=== PATIENT | male | born 1965 | race Caucasian/White ===

== ENCOUNTER 2017-09-05 23:19 | Inpatient (IN) | payer SELFPAY ==
[~2017-09-05] VITALS: Ht 177.8 cm; Wt 54.1 kg
--- NOTE | ~2017-09-05 | PR ---
[place], [place] PROGRESS NOTE NAME: JOSE L COX UNIT #: [id number] ROOM: [facility] DOCTOR: SAHISH ARREDONDO MD,UMESH BIRTHDATE: [birth year] DOS: 09/08/2017 SUBJECTIVE: The patient remains in the Intensive Care Unit at this time. He had a urine drug screen repeated again that was noted negative. The patient reported reduction of the symptoms of shortness breath. Cough was still noted intermittently, nonproductive. Denies symptoms of hemoptysis. Denies chest pain. Denies any symptoms of headache. Denies symptoms of diplopia or any visual changes. The patient reported no symptoms of nausea, vomiting, diarrhea, abdominal pain, hematemesis, or melena. Denies any edema or pain of the lower extremities. Remaining systems of the patient were reviewed and they were noted all negative. OBJECTIVE: VITAL SIGNS: For the patient, which has been recorded showed the temperature noted as normal, respiratory rate 20, heart rate 79, blood pressure 140/71 to 112/64. The pulse oxygen saturation 98% saturation noted on room air. HEENT: Examination shows head was atraumatic. Eyes nonicterus. NECK: Supple. CARDIOVASCULAR: S1, S2 is audible. LUNGS: The patient was noted with moderate decreased breath sounds without any crackles, rhonchi, or wheezing. ABDOMEN: Soft, nontender. EXTREMITIES: Without any acute edema. LABORATORY DATA: Blood culture from the 09/06/2017, preliminary showed no bacterial growth. Final culture results were pending. IMPRESSION: 1. Mass-like consolidation. Rule out malignancy as well in the right upper lung with weight loss. Acute aspiration pneumonia with gram-positive, gram-negative and anaerobic combination with the patient be considered. 2. History of chronic nicotine dependence and chronic obstructive pulmonary disease. PLAN OF THERAPY: Continuation of the current plan of the patient with the antibiotics as previously ordered, bronchodilators, monitoring the lab as ordered legionella and strep pneumo. Continue nicotine placement patches. Continuation of bronchodilators. The patient has been assessed for therapy, bronchoscopy done tomorrow morning. Rule out any endobronchial lesion including assessment of possible malignancy. Otherwise, the biopsies will be deferred for the patient until later with monitoring the patient as an outpatient for the current abnormality. Supportive therapy, plan of management, and care plan. Usual treatment. All other supportive treatment and therapies. [place], [place] PROGRESS NOTE NAME: JOSE L COX UNIT #: [id number] ROOM: [facility] DOCTOR: ASHISH ARREDONDO MD,UMESH BIRTHDATE: [birth year] UMESH HINOJOSA MD CM:WINTER [id number] UMESH ARREDONDO MD 09/08/17 1339 interface
--- NOTE | ~2017-09-05 | PROC NOTE ---
[place], [place] PROCEDURE NOTE NAME: JOSE L COX UNIT #: [id number] ROOM: [facility] DOCTOR: ASHISH ARREDONDO MD,UMESH BIRTHDATE: [birth year] DOS: 09/09/2017 PROCEDURE: Bronchoscopy. PREOPERATIVE DIAGNOSIS: Right upper lung consolidation mass-like lesion. The patient for endobronchial obstruction. POSTOPERATIVE DIAGNOSES: Right upper lung consolidation mass-like lesion the patient for endobronchial obstruction. There was no discrete endobronchial obstruction noted. PROCEDURE DESCRIPTION: Informed consent obtained for the patient. The patient brought to the OR and placed in supine position. Conscious sedation administered by the Anesthesia Department. After achieving proper sedation, airway introduced into the mouth. Bronchoscope was introduced into the airway into laryngeal area. Epiglottis vocal cords were seen. Bronchoscope advanced to vocal cord and tracheal lumen. Tracheal lumen for the patient was identified. The patient noted a small amount of bilious secretion suctioned out to the deepali level. Right upper, right middle, right lower, left upper, lingular lower bronchi were all examined. Small amount of bloody secretion from the patient was noted in the right upper lung bronchus subsegment. The secretion was cleared out with normal saline wash for this patient in addition washing done in the right upper lung. Procedure well tolerated by the patient without complication. Postoperative findings were discussed with the patient's mother in detail in the recovery room. No immediate change in treatment will be done. The patient will have a chest x-ray repeated in a couple of days. The patient also cultured to be monitored for the patient prior to consideration for home discharge plan. UMESH HINOJOSA MD CM:PROCNOTE:PROCEDURE NOTE [id number] UMESH ARREDONDO MD
--- NOTE | ~2017-09-05 | CON ---
[place], [place] REPORT OF CONSULTATION NAME: JOSE L COX UNIT #: [id number] ROOM: [facility] DOCTOR: UMESH CROCKETT MD BIRTHDATE: [birth year] DOS: 09/07/2017 PULMONARY CONSULTATION AND EVALUATION CONSULTATION REQUESTED BY: Hospitalist services. REASON FOR CONSULTATION: To assess for current abnormal area of consolidation, mass-like lesion, the patient in the right upper lobe. HISTORY OF PRESENT ILLNESS: A 52-year-old male patient, who has been noted with acute respiratory symptoms ongoing for about 3-4 weeks. He has been admitted to the hospital essentially for psychiatric reasons with history of major depression and suicidal ideation. The patient stating symptoms of shortness of breath, has been present for the patient associated cough, which has been noted with intermittent sputum expectoration for the last 3 weeks or greater. The symptoms have been noted essentially unchanged. The patient does report some symptoms of wheezing at times as well. He denies any symptoms of chest pain. The patient denies symptoms of hemoptysis. REVIEW OF SYSTEMS: CONSTITUTIONAL: Fatigue and tiredness reported. The patient denies symptoms of fever or chills, but noted weight loss in the patient, about 20 pounds or so for the patient in the past one month. EYES: Denies any burning, tenderness, redness or discharge. EAR, NOSE, AND THROAT: Denies any sore throat, hoarseness, otalgia, postnasal drainage, or epistaxis. CARDIOVASCULAR: Denies anginal pain, edema or pain in the lower extremities. GASTROINTESTINAL: Symptoms of nausea, vomiting, diarrhea, and abdominal pain. Denies symptoms of dysphagia. SKIN: Denies any abnormal lesions or rashes. GENITOURINARY: No dysuria, suprapubic pain, and hematuria. MUSCULOSKELETAL: Denies any joint pain, redness, or tender. No deformities. CENTRAL NERVOUS SYSTEM: Denies dizziness, headache, diplopia, syncopal episodes or seizures. Remaining systems were reviewed with the patient, they were noted all negative. PAST MEDICAL HISTORY: 1. The patient was reported as essential hypertension. 2. Chronic nicotine dependence. 3. History of Garcia's palsy. SOCIAL HISTORY: The patient stated he lives at home. He is not at the present time. The patient does have a history of drinking beer about 2 to 3 packs a day. The tobacco use was noted for the patient from the age of [age] years old. Continue active tobacco. The patient [id number]-half pack of cigarettes per day, stating he is not able to smoke much cigarette for the past few days. PAST SURGICAL HISTORY: 1. Essentially noted as tonsillectomy. [place], [place] REPORT OF CONSULTATION NAME: JOSE L COX UNIT #: [id number] ROOM: [facility] DOCTOR: UMESH CROCKETT MD BIRTHDATE: [birth year] 2. Partial resection of the small bowel. FAMILY HISTORY: The patient's father at age of 5656 years old, complication related to the COPD. Mother living, 83 years old with history of essential hypertension. HOME MEDICATIONS: Not reported. DRUG ALLERGY: None reported by the patient. PHYSICAL EXAMINATION: GENERAL: A 52-year-old white male, currently noted comfortable at this time, sitting on the bed. The patient without any acute distress. Height of 5 feet 10 inches, weight of 119 pounds. BMI is 17. VITAL SIGNS: For the patient shows normal temperature, respiratory rate of 12-20, heart rate 77. The blood pressure 88/49-114/63. The pulse oxygen saturation of the patient was recorded on room air as 99% saturation. HEENT: Head was atraumatic. Eyes, nonicterus. NECK: Supple. CARDIOVASCULAR: S1, S2 was audible. LUNGS: The patient was noted without any crackles, rhonchi, or wheezing. ABDOMEN: Soft, nontender. EXTREMITIES: Without any acute edema. LABORATORY DATA: CBC of the patient on 09/05/2017, WBC count 18.5, hemoglobin and hematocrit normal, platelet count elevated at 37,000. Urinalysis noted negative on admission. Urine drug screen on admission was noted negative for any illicit drugs. The CMP for the patient on 09/05/2017 for this patient was noted with BUN and creatinine was normal. Glucose was normal. Sodium 130, chloride of 94. The salicylate level noted as less than 2. Troponin was normal on the 9th. Lactic acid 2.0 on 09/06/2017. Additional 2 sets of troponin of the patient on 09/06/2017 were normal. CBC of the patient on 09/07/2017, WBC count normal, hemoglobin 12.9, hematocrit 38.7, platelet count 138,000. CMP for the patient that was done for this patient shows BUN normal, creatinine was normal. The chest x-ray of the patient that was done for the patient on admission for the patient was also reviewed for this patient that shows evidence of infiltration noted in the right upper lung, the patient's pleural based mass-like lesion. CT scan of chest was done for the patient on 09/06/2017 for the patient was reviewed. This patient shows 5.6 x 6 cm pleural based consolidation and/or mass-like lesion. The patient noted in the right upper lobe. Evidence of paraseptal emphysema was also noted. Some cystic area for the patient noted in the center for the patient versus the emphysema which is noted with current area of consolidation or mass. There was no evidence of significant lymphadenopathy was noted; however, the mediastinal structures assessment would be considered suboptimal because of lack of the intravenous contrast. Low attenuation intracortical focus in the left upper kidney 1.1 cm was also reported as well. IMPRESSION: 1. The patient currently admitted to the hospital noted with volume loss. The [place], [place] REPORT OF CONSULTATION NAME: JOSE L COX UNIT #: [id number] ROOM: [facility] DOCTOR[facility] [birth year] patient's current finding, the patient may be presenting the atypical area of consolidation. The patient with aspiration pneumonia and the differential would be considered with either central cavitation or the cyst for this patient for emphysema changes surrounded by the area of consolidation, pleural base. 2. History of chronic heavy nicotine abuse, rule out malignancy as well. 3. Pneumonia. The patient in the differential would be also considered, Legionella pneumonia. The patient was Staph aureus for gram-negative infections. PLAN OF MANAGEMENT: At this time, the patient would be given the intravenous Zithromax. The patient on Zosyn as the primary antibiotic. The patient should suffice for the current treatment. Bronchodilator will be continued. Monitor respiratory status closely. Continue manage the patient's symptoms and management of the major depression for this patient as already noted in progress. Supportive therapy plan and management. Nicotine replacement patch to overcome the nicotine withdrawal. The sputum for Gram stain and culture. Urine for Legionella antigen and strep antigen will be ordered as well. Additional treatment changes will be recommended based on the further assessment of progression of the illness. Assessment and management was discussed with Dr. Gissell Pizano, who is the primary care attending for the patient today. UMESH HINOJOSA MD CM:CONSTR:REPORT OF CONSULTATION 1347 09/07/17 1626 interface
--- NOTE | ~2017-09-05 | PR ---
[place], [place] PROGRESS NOTE NAME: JOSE L COX UNIT #: [id number] ROOM: [facility] DOCTOR: ASHISH ARREDONDO MD,UMESH BIRTHDATE: [birth year] DOS: 09/09/2017 SUBJECTIVE: The patient remains on the antibiotic. The patient noted the cough. Denies chest pain, denies symptoms of shortness of breath. Denies symptoms of hemoptysis. He had not been noted any other abnormal symptoms in the last 24 hours. The patient's depression seem to be better. Remaining review of system was completed, noted all negative. He is n.p.o. past midnight. Bronchoscopy to be done today. OBJECTIVE: VITAL SIGNS: The patient showed normal temperature, respiratory 15-20, heart rate 69-71, blood pressure 160/51-132/77. Pulse oxygen saturation on room air was 96% saturation. HEENT: Head was atraumatic. Eyes nonicterus. NECK: Supple. CARDIOVASCULAR: S1, S2 audible. LUNGS: Llmh-mk-qjxarhul decreased breath sounds bilaterally. ABDOMEN: Soft, nontender. EXTREMITIES: Without any acute edema with no skin lesions or rashes. MUSCULOSKELETAL: Without any acute deformities. CENTRAL NERVOUS SYSSTEM: For patient noted cranial nerves 2-12 intact. No focal deficit. LABORATORY DATA: The patient's CBC today: WBC count 11.8, hemoglobin 35, platelet count, WBC count normal. BMP this morning, normal BUN and creatinine. Glucose was normal. The patient underwent a cardiac stress test yesterday, completed on 09/08/2017 was described as a normal pericardial perfusion images. Impaired left ventricular ejection fraction noted at 40% of the left ventricle, ejection fraction. IMPRESSION: 1. The patient who has been noted with the cardiomyopathy. 2. Acute pneumonia for patient suspected strongly, rule out any endobronchial obstruction or malignancy right upper lobe as well. 3. Chronic obstructive pulmonary disease. 4. The patient with depression with suicidal ideation as well. 5. Chronic nicotine dependence. PLAN OF TREATMENT: Continue current antibiotics, bronchodilators and oxygen supplementation. The changes in the medical management will be done if necessary after bronchoscopy. In the meantime, continue other supportive plan of management and therapy plan of care. No additional change in treatment is advised will be necessary at the present time. [place], [place] PROGRESS NOTE NAME: JOSE L COX UNIT #: [id number] ROOM: [facility] DOCTOR: UMESH CROCKETT MD BIRTHDATE: [birth year] UMESH HINOJOSA MD CM:WINTER [id number] UMESH ARREDONDO MD 09/09/17 1731 interface
--- NOTE | ~2017-09-05 | CON ---
[place], [place] REPORT OF CONSULTATION NAME: JOSE L COX UNIT #: [id number] ROOM: [facility] DOCTOR: JOSE L TURK MD BIRTHDATE: [birth year] DOS: 09/06/2017 REASON FOR CONSULTATION: Newly documented left bundle branch block. HISTORY OF PRESENT ILLNESS: The patient is a 52-year-old man who has no previous history of heart disease. He came in to the hospital complaining of a cough productive of purulent sputum. In addition, he was having suicidal ideations. In the emergency room, he was noted to have a left bundle branch block. Reportedly, an electrocardiogram from 2011 did not show this pattern and therefore, cardiology consultation was requested. The patient states that he typically does not have chest pain, but for the last 3 weeks, he has been having a productive cough and did develop right-sided chest pain, which is worse with coughing. He denies any fevers, chills or sweats. He denies lightheadedness or syncope. He denies nausea or vomiting. He has been anorectic and states that he has not been eating well lately. He has been losing weight. PAST MEDICAL HISTORY: Includes: 1. Hypertension. The patient was treated for hypertension for a while about 10 years ago. When he moved for his job, he did not get another physician and stopped taking the medications. 2. History of Garcia palsy around 2009. 3. History of small bowel resection when he was an infant, reason not known. 4. Status post tonsillectomy. 5. History of tobacco and alcohol abuse. The patient does drink several beers every day. MEDICATIONS PRIOR TO ADMISSION: None. ALLERGIES: The patient has no known drug allergies. FAMILY HISTORY: The patient's father at age 56 from emphysema. His mother is alive at age 83 and has a history of hypertension. There is no family history of early coronary disease. REVIEW OF SYSTEMS: The patient denies diplopia or loss of vision. He is generally weak, but denies focal weakness. He denies syncope or lightheadedness. He has been anorectic lately. He denies nausea or vomiting. He denies hemoptysis or hematemesis, although he does have a cough productive of purulent sputum. He does have chest pain with cough and deep breath on the right side of his chest radiating from his front to his back. He denies diarrhea or constipation. He denies blood in his urine or stools. He denies peripheral edema. He denies any leg cramping. Remainder review of systems is negative except as noted above. He denies polydipsia or polyuria. Remainder of the review of systems is negative except as noted above. SOCIAL HISTORY: The patient is single, although he does have a fiancee. He [place], [place] REPORT OF CONSULTATION NAME: JOSE L COX UNIT #: [id number] ROOM: [facility] DOCTOR: JOSE L TURK MD BIRTHDATE: [birth year] smokes daily and drinks 3-4 beers every day. He used to drink more heavily in the past. PHYSICAL EXAMINATION: GENERAL: The patient is a slender white male who is awake, alert and oriented. VITAL SIGNS: Pulse is 84 and regular, blood pressure is 130/70. He is afebrile. He weighs 54.1 kg and has a body mass index of 17.1. HEENT: Normocephalic and atraumatic. Extraocular muscles are intact. Sclerae are clear. Pupils equal, round and react to light. The oral mucosa is moist. Tongue is midline. NECK: Supple. He has no jugular distention. Carotids are full. He has no bruits. He has no neck or supraclavicular masses, no thyromegaly. LUNGS: Respirations are unlabored. His chest is clear to auscultation and percussion. He has no presacral edema or chest wall tenderness. CARDIOVASCULAR: His heart has a regular rhythm. Heart tones are distant. I heard a fourth heart sound, but no third heart sound or murmur. The PMI is not displaced. He has no precordial heave, lift or thrill. ABDOMEN: Soft and normally active without masses, organomegaly or bruits. EXTREMITIES: Showed no edema. Peripheral pulses are palpable in the feet. LABORATORY DATA: I reviewed his electrocardiograms and they do indeed show a left bundle branch block. Serial troponin levels have been normal. White count is elevated at 18,500 with a normal hemoglobin at 15.4, platelet count is 537,000. Sodium is 130, potassium 4.2, BUN 70, creatinine 0.71. Lactate level was 2.0 on admission. Chest x-ray does show a right upper lobe pneumonia. IMPRESSIONS: 1. Hospitalization for suicidal ideation. 2. Severe depression. 3. Left bundle branch block. Reportedly, this is new compared to an electrocardiogram from 2011. 4. History of untreated hypertension. 5. History of alcohol abuse. PLAN: The etiology of the patient's left bundle branch block is unknown; however, if it is a recently acquired finding, it does increase his risk for cardiac events in the next year. He was told that alcohol could be contributing to this and advised to stop drinking as well as stop smoking. In order to evaluate his status further, we will be getting an echocardiogram when it is available. We will also do a pharmacologic stress test. Further recommendations will depend upon the results of these examinations. I thank the hospitalist physicians for asking our advice regarding the patient's care. [place], [place] REPORT OF CONSULTATION NAME: JOSE L COX UNIT #: [id number] ROOM: [facility] DOCTOR: JOSE L TURK MD BIRTHDATE: [birth year] JOSE L TURK MD CM:CONSTR:REPORT OF CONSULTATION 1337 09/08/17 1534 interface
--- NOTE | ~2017-09-05 | PR ---
[place], [place] PROGRESS NOTE NAME: JOSE L COX UNIT #: [id number] ROOM: [id number] DOCTOR: ASHISH ARREDONDO MD,UMESH BIRTHDATE: [birth year] DOS: 09/11/2017 SUBJECTIVE: The patient was noted comfortable at this time without any acute distress. Resting comfortably on the chair. Denies symptoms of chest pain, coughing, sputum expectoration. OBJECTIVE: VITAL SIGNS: Normal temperature, respiratory rate 20, heart rate 59, blood pressure 112/67, pulse ox and saturation on room air 98% saturation. HEENT: Examination shows no acute change. NECK: Supple. CARDIOVASCULAR: S1, S2 is audible. LUNGS: Noted without any wheeze or crackles. ABDOMEN: Soft, nontender. LABORATORY DATA: The chest x-ray of the patient that was done this morning, the patient showed reduction of previous noted area of consolidation, infiltration or mass-like lesion in the right upper lobe. IMPRESSION: The patient has been noted with continued progressive improvement and resolution of the current, acute pneumonia, rule out malignancy as well until complete resolution occurs. The patient with the depression, which has been noted better. PLAN OF THERAPY: The patient could be discharged home today with outpatient followup. The patient in the next couple of weeks, was recommended. Certainly, the abnormality in the right upper lung needs to be excluded completely with followup chest x-ray and CT scans. Abstinence tobacco use recommended. UMESH HINOJOSA MD CM:PNTRANS [phone] UMESH ARREDONDO MD 09/11/17 195 interface
--- NOTE | ~2017-09-05 | PR ---
[place], [place] PROGRESS NOTE NAME: JOSE L COX UNIT #: [id number] ROOM: [facility] DOCTOR: JOSE L TURK MD BIRTHDATE: [birth year] DOS: 09/07/2017 SUBJECTIVE: The patient was seen today 09/07/2017 at his bedside in the intensive care unit. The patient is a 52-year-old man whom I first saw yesterday for evaluation of an abnormal electrocardiogram. He was brought to the hospital with suicidal ideations, was found to have pneumonia and a possible lung mass. His electrocardiogram shows a left bundle branch block, which apparently was not present in 2012. He does have a history of hypertension and does have a family history of multiple family members having heart disease, but not early coronary disease. Since admission, he has been treated for his pneumonia and is breathing more easily. He no longer has chest discomfort. He denies fevers or chills. He has a cough, but it is nonproductive. PHYSICAL EXAMINATION: VITAL SIGNS: Today, his pulse is 77 and regular, blood pressure is 114/63. He is afebrile. NECK: Supple. He has no jugular distention. Carotids are full. There are no bruits. He has no neck or supraclavicular masses and no thyromegaly. LUNGS: Respirations are unlabored. He has decreased breath sounds in the right lung. A Few crackles are heard. ABDOMEN: Benign. EXTREMITIES: Showed no edema. IMPRESSION: 1. Hospitalization for suicidal ideation. 2. Newly documented left bundle branch block. Reportedly, this was not present on an electrocardiogram from 2011. 3. Right upper lobe pneumonia with possible lung mass. 4. History of hypertension. 5. History of ongoing alcohol abuse. PLAN: We will evaluate the patient further with an echocardiogram and pharmacologic myocardial perfusion study. Further comments regarding the patient's cardiac status and prognosis will depend upon the results of those examinations. We thank the hospitalist service for asking our advice regarding his care. [place], [place] PROGRESS NOTE NAME: JOSE L COX UNIT #: [id number] ROOM: [facility] DOCTOR: JOSE L TURK MD BIRTHDATE: [birth year] JOSE L TURK MD CM:PNKAREN [phone] JOSE L TURK MD 09/07/17 1250 interface
--- NOTE | ~2017-09-05 | PR ---
[place], [place] PROGRESS NOTE NAME: JOSE L COX UNIT #: [id number] ROOM: [facility] DOCTOR: JOSE L TURK MD BIRTHDATE: [birth year] DOS: 09/08/2017 SUBJECTIVE: The patient was seen in the Cardiology Department today, 09/08/2017 just prior to a pharmacologic stress test. He is a 52-year-old man who presented recently to the hospital and was found to have a newly documented left bundle branch block. The patient states he is feeling better. He did, however, have an echocardiogram this morning, which shows that his left ventricle is impaired with an ejection fraction between 20 and 25% and stage II diastolic dysfunction. He does show akinesis of the anterior septal richards with global hypokinesis elsewhere. The examination is most consistent with an ischemic cardiomyopathy, although toxic myopathy from alcohol abuse is also a possibility. PHYSICAL EXAMINATION: VITAL SIGNS: Today, his pulse is 79 and regular, blood pressure is 104/71. He is afebrile. He weighs 54.1 kg and has a body mass index of 17.1. HEENT: Normocephalic and atraumatic. Extraocular muscles are intact. Sclerae are clear. His oral mucosa is moist. Tongue is midline. NECK: Supple. He has no jugular distention. Carotids are full. LUNGS: Respirations are unlabored. Chest is clear. HEART: Has a regular rhythm with an S4 gallop. I did not hear an S3. ABDOMEN: Benign. EXTREMITIES: Showed no edema. LABORATORY DATA: Hemoglobin is 12.9, white count 9700, platelet count 438,000. Sodium 138, potassium 4.2, BUN 13, creatinine 0.84. IMPRESSION: 1. Newly documented left bundle branch block. 2. Abnormal echocardiogram demonstrating regional and global left ventricular dysfunction with an ejection fraction between 20 and 25% and stage II diastolic relaxation abnormalities. 3. Right upper lobe pneumonia with possible lung mass. 4. History of hypertension. 5. History of alcohol abuse. PLAN: We will perform a pharmacologic stress test in order to determine the cause for his left ventricular dysfunction. Further recommendations depend upon the results of the stress test. I thank the hospitalist physicians for asking our advice regarding his care. [place], [place] PROGRESS NOTE NAME: JOSE L COX UNIT #: [id number] ROOM: [facility] DOCTOR: JOSE L TURK MD BIRTHDATE: [birth year] JOSE L TURK MD CM:PNTRANS [id number] JOSE L TURK MD 09/08/17 1054 interface
--- NOTE | ~2017-09-05 | PR ---
[place], [place] PROGRESS NOTE NAME: JOSE L COX UNIT #: [id number] ROOM: [id number] DOCTOR: ASHISH ARREDONDO MD,UMESH BIRTHDATE: [birth year] DOS: 09/10/2017 SUBJECTIVE: The patient was noted comfortable at this time, resting on the bed. The patient has a bronchoscopy done yesterday for large area of consolidation to rule out endobronchial obstruction. He denies symptoms of chest pain. Denies abdominal pain. OBJECTIVE: VITAL SIGNS: The patient showed normal temperature, respiratory rate 18, heart rate 72, and blood pressure 118/69. Pulse oxygen saturation on room air 98% saturation. HEENT: Examination shows head was atraumatic. Eyes nonicterus. NECK: Supple. CARDIOVASCULAR: S1, S2 audible. LUNGS: Without any wheeze or crackles. ABDOMEN: Soft, nontender. LABORATORY DATA: The patient's CBC today, normal WBC count, hemoglobin 12.4. The culture of the bronchial washing preliminary noted as normal caitlin. The Gram stain many white blood cells, rare epithelial cells, rare gram-positive cocci in pairs. IMPRESSION: The patient is being currently noted with stable respiratory status at present time with large area of consolidation, mass-like lesion in the left upper lobe. PLAN OF MANAGEMENT: No changes in the plan of therapy for the patient at this time. Continue the patient's current plan of care. Usual treatment, all other supportive management and therapies. UMESH HINOJOSA MD CM:PNTRANS [id number] UMESH ARREDONDO MD 09/10/17 1620 interface
--- NOTE | ~2017-09-05 | CON ---
[place], [place] REPORT OF CONSULTATION NAME: JOSE L COX UNIT #: [id number] ROOM: [facility] DOCTOR: JACKY MAGAÑA MD BIRTHDATE: [birth year] DOS: 09/06/2017 REASON FOR HOSPITALIZATION: Increased depression and suicidal ideation with a plan. HISTORY OF PRESENT ILLNESS: The patient was seen, chart reviewed, and I spoke with nursing staff. The patient is a 52-year-old male who was brought in to the ER because of increased depression and suicidal ideation with a plan to kill himself in the cold and freeze. Reportedly, the patient told the ER that he has nothing to live for anymore. The patient was pleasant and cooperative during the interview. He reports being depressed, down, sad, hopeless and helpless for the last 8 months since he lost his job. He said that he lost everything and that there is nothing to look forward to. He said that he has been lying to his family and he feels guilty and bad about himself now also. He denied any symptoms of psychosis, sumit, or hypomania. PAST MEDICAL HISTORY: Nothing reported. PAST PSYCHIATRIC HISTORY: The patient denied any prior psychiatric hospitalization. No prior suicide attempt. No suicide in the family. Denied having any gun at home. SUBSTANCE ABUSE HISTORY: The patient mentions that he drinks alcohol. He said that he drinks at least 6 beers and sometimes more every day. Denied any other substances. SOCIAL HISTORY: He was born and raised in [place], [place]. High school graduate. He was in the [employer], but got honorable discharge. Never , no kids. He is unemployed. He has been living with his fiancee. MENTAL STATUS EXAMINATION: The patient was pleasant, cooperative. He was alert and oriented to date, month and year. Speech is normal volume and tone. He described his mood as "down." Affect was constricted. Thought process goal directed. No flight of ideas, loosening of association. He denied auditory or visual hallucination. No delusion or paranoia noted. He still had fleeting suicidal ideation, but no intent or plan. Denied any homicidal ideation, intent or plan. Insight and judgment fair. ASSESSMENT: 1. Major depressive disorder, recurrent without psychotic feature, currently depressed with fleeting suicidal ideation. 2. Alcohol dependence. PLAN: 1. Continue current care at the ICU. 2. Continue redirection. 3. The patient needs to be admitted to the psychiatric floor once medically stable. If the patient refuses, he needs to be pink slipped. [place], [place] REPORT OF CONSULTATION NAME: JOSE L COX UNIT #: [id number] ROOM: [facility] DOCTOR: JACKY MAGAÑA MD BIRTHDATE: [birth year] JACKY MAGAÑA MD CM:CONSTR:REPORT OF CONSULTATION 1105 09/06/17 1137 interface
[2017-09-05 23:20] VITALS: BP 174/100
[2017-09-06] VITALS (8 sets, daily range): BP systolic 103–156; BP diastolic 60–98
[2017-09-06 00:02] LABS: BASO # 0.1 10*3/uL (0.0-0.1); BASO % 0.4 % (0.0-1.0); EOS % 0.1 % (1.0-4.0); HEMATOCRIT 45.1 % (42.0-52.0); HEMOGLOBIN 15.4 g/dl (14.0-18.0); LYMPH # 2.6 10*3/uL (1.3-4.4); LYMPH % 13.9 % (27.0-41.0); MEAN CELL VOLUME 91.7 fl (80.0-94.0); MEAN CORPUSCULAR HGB 31.3 pg (27.0-31.0); MEAN CORPUSCULAR HGB CONC 34.1 g/dl (33.0-37.0); MEAN PLATELET VOLUME 8.9 fl (9.6-12.3); MONO # 1.3 10*3/uL (0.1-1.0); MONO % 7.1 % (3.0-9.0); NEUT # 14.4 10*3/uL (2.3-7.9); NEUT % 77.5 % (47.0-73.0); PLATELET COUNT AUTOMATED 537 10*3/uL (130-400); RED BLOOD COUNT 4.92 10*6/uL (4.50-5.90); WHITE BLOOD COUNT 18.5 10*3/uL (4.8-10.8)
[2017-09-06 00:04] LABS: BILIRUBIN NEGATIVE (NEGATIVE); BLOOD NEGATIVE (NEGATIVE); CLARITY SL CLOUDY (CLEAR); COLOR YELLOW (YELLOW); GLUCOSE NEGATIVE (NEGATIVE); KETONE NEGATIVE (NEGATIVE); LEUKO ESTERASE NEGATIVE (NEGATIVE); NITRITE NEGATIVE (NEGATIVE); SPECIFIC GRAVITY <= 1.005 (1.005-1.030); UROBILINOGEN 0.2 E.U./dl (0.2-1.0)
[2017-09-06 00:10] LABS: BACTERIA TRACE; EPITHELIAL CELLS 0-2; WBC 0-2 wbc/hpf (0-5)
[2017-09-06 00:17] LABS: ACETAMINOPHEN (TYLENOL) < 2.0 ug/ml (10-30); ALBUMIN 3.5 gm/dl (3.1-4.5); ALKALINE PHOSPHATASE 104 U/L (45-117); BUN 7 mg/dl (7-24); CHLORIDE 94 mmol/L (98-107); CREATININE 0.71 mg/dL (0.70-1.30); ETHYL ALCOHOL < 3.0 mg/dl (<3); POTASSIUM 4.2 mmol/L (3.5-5.1); SGOT/AST 17 IU/L (3-35); SGPT/ALT 17 U/L (12-78); SODIUM 130 mmol/L (136-145); TOTAL PROTEIN 8.6 gm/dL (6.4-8.2)
[2017-09-06 00:18] LABS: URINE AMPHETAMINES < 1000 (1000ng/ml); URINE BARBITURATES < 200 (200ng/ml); URINE CANNABINOIDS (THC) < 50 (50ng/ml); URINE COCAINE < 300 (300ng/ml); URINE METHADONE < 300 (300ng/ml); URINE OPIATES < 300 (300ng/ml)
[2017-09-06 00:19] LABS: URINE BENZODIAZEPINES < 200 (200ng/ml)
[2017-09-06 00:22] LABS: URINE PHENCYCLIDINE < 25 (25ng/ml)
[2017-09-07] VITALS (7 sets, daily range): BP systolic 88–114; BP diastolic 48–63
[2017-09-07 05:51] LABS: ALBUMIN 2.8 gm/dl (3.1-4.5); ALKALINE PHOSPHATASE 71 U/L (45-117); BUN 13 mg/dl (7-24); CHLORIDE 102 mmol/L (98-107); CHOLESTEROL 144 mg/dL (<200); CREATININE 0.84 mg/dL (0.70-1.30); FREE T4 1.08 ng/dl (0.76-1.46); HDL CHOLESTEROL 64 mg/dl (40-60); LDL CHOLESTEROL 68 mg/dL (9-159); PHOSPHOROUS 4.3 mg/dL (2.5-4.9); POTASSIUM 4.2 mmol/L (3.5-5.1); SGOT/AST 9 IU/L (3-35); SGPT/ALT 14 U/L (12-78); SODIUM 138 mmol/L (136-145); TOTAL PROTEIN 6.5 gm/dL (6.4-8.2); TRIGLYCERIDES 61 mg/dl (<150); VLDL CHOLESTEROL 12 mg/dL (6-40)
[2017-09-07 05:56] LABS: BASO # 0.1 10*3/uL (0.0-0.1); BASO % 0.8 % (0.0-1.0); LYMPH # 3.3 10*3/uL (1.3-4.4); LYMPH % 34.1 % (27.0-41.0); MEAN CELL VOLUME 93.7 fl (80.0-94.0); MEAN CORPUSCULAR HGB 31.2 pg (27.0-31.0); MEAN CORPUSCULAR HGB CONC 33.3 g/dl (33.0-37.0); MEAN PLATELET VOLUME 9.3 fl (9.6-12.3); MONO # 0.9 10*3/uL (0.1-1.0); MONO % 9.2 % (3.0-9.0); NEUT # 5.4 10*3/uL (2.3-7.9); NEUT % 55.4 % (47.0-73.0); PLATELET COUNT AUTOMATED 438 10*3/uL (130-400); RED BLOOD COUNT 4.13 10*6/uL (4.50-5.90); RED CELL DISTRI WIDTH 13.2 % (0-14.5); WHITE BLOOD COUNT 9.7 10*3/uL (4.8-10.8)
[2017-09-07 06:25] LABS: HEMATOCRIT 38.7 % (42.0-52.0); HEMOGLOBIN 12.9 g/dl (14.0-18.0)
[2017-09-08] VITALS: BP 105/59
[2017-09-08 04:00] VITALS: BP 112/64
[2017-09-08 05:58] LABS: URINE AMPHETAMINES < 1000 (1000ng/ml); URINE BARBITURATES < 200 (200ng/ml); URINE BENZODIAZEPINES < 200 (200ng/ml); URINE CANNABINOIDS (THC) < 50 (50ng/ml); URINE COCAINE < 300 (300ng/ml); URINE METHADONE < 300 (300ng/ml); URINE OPIATES < 300 (300ng/ml)
[2017-09-08 06:06] LABS: URINE PHENCYCLIDINE < 25 (25ng/ml)
[2017-09-08 08:00] VITALS: BP 104/71
[2017-09-08 12:00] VITALS: BP 110/64
[2017-09-08 16:00] VITALS: BP 103/63
[2017-09-08 20:00] VITALS: BP 124/61
[2017-09-09] VITALS (10 sets, daily range): BP systolic 106–163; BP diastolic 51–89
[2017-09-09 05:55] LABS: BASO # 0.1 10*3/uL (0.0-0.1); BASO % 0.6 % (0.0-1.0); HEMATOCRIT 35.9 % (42.0-52.0); HEMOGLOBIN 11.8 g/dl (14.0-18.0); LYMPH # 2.1 10*3/uL (1.3-4.4); LYMPH % 20.9 % (27.0-41.0); MEAN CELL VOLUME 93.7 fl (80.0-94.0); MEAN CORPUSCULAR HGB 30.8 pg (27.0-31.0); MEAN CORPUSCULAR HGB CONC 32.9 g/dl (33.0-37.0); MEAN PLATELET VOLUME 9.4 fl (9.6-12.3); MONO # 1.4 10*3/uL (0.1-1.0); MONO % 14.2 % (3.0-9.0); NEUT # 6.3 10*3/uL (2.3-7.9); NEUT % 63.9 % (47.0-73.0); PLATELET COUNT AUTOMATED 388 10*3/uL (130-400); RED BLOOD COUNT 3.83 10*6/uL (4.50-5.90); RED CELL DISTRI WIDTH 13.6 % (0-14.5); WHITE BLOOD COUNT 9.8 10*3/uL (4.8-10.8)
[2017-09-09 05:59] LABS: BUN 9 mg/dl (7-24); CHLORIDE 103 mmol/L (98-107); CREATININE 0.66 mg/dL (0.70-1.30); POTASSIUM 4.4 mmol/L (3.5-5.1); SODIUM 137 mmol/L (136-145)
[2017-09-10] VITALS: BP 118/61
[2017-09-10 07:09] LABS: BASO # 0.1 10*3/uL (0.0-0.1); BASO % 0.7 % (0.0-1.0); HEMATOCRIT 37.9 % (42.0-52.0); HEMOGLOBIN 12.4 g/dl (14.0-18.0); LYMPH # 2.2 10*3/uL (1.3-4.4); LYMPH % 24.3 % (27.0-41.0); MEAN CORPUSCULAR HGB 31.1 pg (27.0-31.0); MEAN CORPUSCULAR HGB CONC 32.7 g/dl (33.0-37.0); MEAN PLATELET VOLUME 9.3 fl (9.6-12.3); MONO # 1.3 10*3/uL (0.1-1.0); MONO % 14.7 % (3.0-9.0); NEUT # 5.5 10*3/uL (2.3-7.9); NEUT % 59.9 % (47.0-73.0); PLATELET COUNT AUTOMATED 373 10*3/uL (130-400); RED BLOOD COUNT 3.99 10*6/uL (4.50-5.90); RED CELL DISTRI WIDTH 13.4 % (0-14.5); WHITE BLOOD COUNT 9.1 10*3/uL (4.8-10.8)
[2017-09-10 07:15] LABS: BUN 11 mg/dl (7-24); CHLORIDE 102 mmol/L (98-107); CREATININE 0.78 mg/dL (0.70-1.30); POTASSIUM 4.7 mmol/L (3.5-5.1); SODIUM 138 mmol/L (136-145)
[2017-09-10 08:00] VITALS: BP 118/69
[2017-09-10 12:00] VITALS: BP 116/50
[2017-09-10 16:00] VITALS: BP 121/62
[2017-09-10 16:05] LABS: ACID FAST SPEC PROCESSING Concentration (.)
[2017-09-10 20:00] VITALS: BP 108/56
[2017-09-11] VITALS: BP 120/63
[2017-09-11 08:00] VITALS: BP 112/67
[2017-09-11] MEDS ORDERED: COREG12.5 M1 PO (09:26)
[2017-09-11] MEDS ORDERED: LISINOPRIL10 M1 PO (09:26)
[2017-09-11] MEDS ORDERED: ALDACTONE25 MG PO (09:26)
[2017-09-11 12:00] VITALS: BP 121/59
[2017-09-11] MEDS ORDERED: VITAMIN D-32000 UNIT PO (13:35)
[2017-09-11] MEDS ORDERED: LEXAPRO10 MG PO (13:35)
[2017-09-11] MEDS ORDERED: DOXYCYCLINE100 M3 PO (13:43)
[2017-09-11 16:00] VITALS: BP 120/59
== END 2017-09-11 18:40 | disposition home or self-care (01) | DRG 177 ==
LOC: ED 23:19 → ICCU 09-06 01:25 → EDHOLD 09-06 01:25 → ICCU 09-06 01:53 → 5E 09-09 18:24
PROVIDERS: Internal Medicine; Internal Medicine Critical Care Medicine; Internal Medicine Nephrology; Physician Assistant
PROC: 4A02XM4 Measurement of Cardiac Total Activity, External Approach (ICD-10-PCS; 2017-09-08)
PROC: 3E073KZ Introduction of Other Diagnostic Substance into Coronary Artery, Percutaneous Approach (ICD-10-PCS; 2017-09-08)
PROC: 0BJ08ZZ Inspection of Tracheobronchial Tree, Via Natural or Artificial Opening Endoscopic (ICD-10-PCS; principal; 2017-09-09)
DX: J69.0 Pneumonitis due to inhalation of food and vomit (principal); E43 Unspecified severe protein-calorie malnutrition; E87.8 Other disorders of electrolyte and fluid balance, not elsewhere classified; E87.1 Hypo-osmolality and hyponatremia; R45.851 Suicidal ideations; F33.9 Major depressive disorder, recurrent, unspecified; I42.6 Alcoholic cardiomyopathy; J44.0 Chronic obstructive pulmonary disease with (acute) lower respiratory infection; Z68.1 Body mass index [BMI] 19.9 or less, adult; I11.9 Hypertensive heart disease without heart failure; I44.7 Left bundle-branch block, unspecified; D47.3 Essential (hemorrhagic) thrombocythemia; R91.8 Other nonspecific abnormal finding of lung field; J15.8 Pneumonia due to other specified bacteria; D72.825 Bandemia; D72.821 Monocytosis (symptomatic); Z78.9 Other specified health status; F17.200 Nicotine dependence, unspecified, uncomplicated; E55.9 Vitamin D deficiency, unspecified

== ENCOUNTER 2018-03-03 06:50 | Emergency (ER) | payer SELFPAY ==
[~2018-03-03] VITALS: Wt 59.0 kg
[~2018-03-03 06:50] MED LIST: ALDACTONE25 MG PO; COREG12.5 M1 PO; DOXYCYCLINE100 M3 PO; LEXAPRO10 MG PO; LISINOPRIL10 M1 PO; VITAMIN D-32000 UNIT PO
[2018-03-03 07:20] LABS: HEMATOCRIT 41.6 % (42.0-52.0); MEAN CELL VOLUME 96.3 fl (80.0-94.0); MEAN CORPUSCULAR HGB 32.4 pg (27.0-31.0); MEAN CORPUSCULAR HGB CONC 33.7 g/dl (33.0-37.0); MEAN PLATELET VOLUME 9.4 fl (9.6-12.3); PLATELET COUNT AUTOMATED 176 10*3/uL (130-400); RED BLOOD COUNT 4.32 10*6/uL (4.50-5.90); RED CELL DISTRI WIDTH 13.2 % (0-14.5); WHITE BLOOD COUNT 34.1 10*3/uL (4.8-10.8)
[2018-03-03 07:36] LABS: ALBUMIN 3.9 gm/dl (3.1-4.5); ALKALINE PHOSPHATASE 61 U/L (45-117); BUN 14 mg/dl (7-24); CHLORIDE 104 mmol/L (98-107); CREATININE 1.08 mg/dL (0.70-1.30); SGOT/AST 46 IU/L (3-35); SGPT/ALT 30 U/L (12-78); SODIUM 138 mmol/L (136-145); TOTAL PROTEIN 7.2 gm/dL (6.4-8.2)
[2018-03-03 07:43] LABS: TOTAL CELLS COUNTED 100 #CELLS
[2018-03-03 07:44] LABS: PLATELET SUFFICIENCY NORMAL (NORMAL)
== END 2018-03-03 07:54 | disposition short-term general hospital (02) ==
LOC: ED 06:50
PROVIDERS: Emergency Medicine
DX: S51.811A Laceration without foreign body of right forearm, initial encounter (principal); S51.812A Laceration without foreign body of left forearm, initial encounter; S05.12XA Contusion of eyeball and orbital tissues, left eye, initial encounter; I10 Essential (primary) hypertension; F17.200 Nicotine dependence, unspecified, uncomplicated; Z98.890 Other specified postprocedural states; Z79.899 Other long term (current) drug therapy; W10.9XXA Fall (on) (from) unspecified stairs and steps, initial encounter; Y93.89 Activity, other specified; Y92.89 Other specified places as the place of occurrence of the external cause; Y99.8 Other external cause status